=== PATIENT | male | born 1985 | race Caucasian/White ===

== ENCOUNTER 2021-03-16 07:56 | Outpatient (CLI) | payer OTHER | END 2021-03-16 08:15 | disposition home or self-care (01) | LOC: MRI 07:56 | PROVIDERS: ATTEND Orthopaedic Surgery | DX: M25.511 Pain in right shoulder (principal); M25.512 Pain in left shoulder; M25.561 Pain in right knee; M25.562 Pain in left knee; M54.2 Cervicalgia; M54.59 Other low back pain | CPT/HCPCS: 73221; 73721 ==

== ENCOUNTER 2021-09-10 09:32 | Outpatient (CLI) | payer OTHER | END 2021-09-10 10:00 | disposition home or self-care (01) | LOC: MRI 09:32 | PROVIDERS: ATTEND Orthopaedic Surgery | DX: S83.202A Bucket-handle tear of unspecified meniscus, current injury, unspecified knee, initial encounter (principal); M25.551 Pain in right hip | CPT/HCPCS: 73718; 73721 ==

== ENCOUNTER 2024-01-16 16:05 | Inpatient (IN) | payer OTHER ==
[2024-01-16 17:00] VITALS: BP 112/74; O2SAT 98
[2024-01-16] MEDS ORDERED: BACLOFEN 10 MG TABLET PO SCH (17:00)
[2024-01-16] MEDS ORDERED: MORPHINE SULFATE 4 MG/ML CARTRIDGE IV PRN (17:00)
== END 2024-01-16 18:20 | disposition left against medical advice (07) | DRG 552 ==
LOC: SURG 16:05
PROVIDERS: ADMIT Internal Medicine; ATTEND Internal Medicine
PROC: BR39ZZZ Magnetic Resonance Imaging (MRI) of Lumbar Spine (ICD-10-PCS; principal; 2024-01-16)
DX: M54.50 Low back pain, unspecified (principal); Z53.29 Procedure and treatment not carried out because of patient's decision for other reasons
CPT/HCPCS: 72148

== ENCOUNTER 2024-03-11 12:38 | Outpatient (CLI) | payer OTHER | END 2024-03-11 13:51 | disposition home or self-care (01) | LOC: TOM 12:38 | PROVIDERS: ATTEND Otolaryngology | DX: M51.360 Other intervertebral disc degeneration, lumbar region with discogenic back pain only (principal); G89.4 Chronic pain syndrome; M51.17 Intervertebral disc disorders with radiculopathy, lumbosacral region; J32.4 Chronic pansinusitis | CPT/HCPCS: 72148 ==